=== PATIENT | male | born 1960 | race Caucasian/White ===

== ENCOUNTER → 2017-04-29 | Day surgery (SDC) | payer BC ==
[~2017-04-29] MED LIST: CERTAGEN PO; FLONASE ALLERG9.9 ML; NO MEDICATIONS; [UNRECOGNIZED DRUG - OTHER]
--- NOTE | ~2017-04-29 | OR ---
Unit #: [id number] #: [id number] Patient: PERLA HOLLOWAY [id number] [address] [address] [id number] MR#: [id number] NAME: PERLA HOLLOWAY ROOM: Date of Procedure: 04/29/2017 Admission Date: 04/29/2017 Surgeon: Marc Williamson M.D. : 1960 Attending Physician: Marc Williamson M.D. Referring Physician: Marc Williamson M.D. Primary Care Physician: Paolo Pérez M.D. OPERATIVE REPORT PROCEDURES PERFORMED Colonoscopy with biopsy removal of polyp. INDICATIONS FOR PROCEDURE The patient with history of serrated adenoma in the past, undergoing surveillance colonoscopy. MEDICATIONS Monitored anesthesia. POSTOPERATIVE FINDINGS 1. Small 2 mm polyp, cecum, removed using biopsy forceps. 2. Rest of the colon exam to cecum was normal. 3. Prep was good. 4. Internal hemorrhoids. PLAN If he has history of having large serrated adenoma, recommend repeat colonoscopy in 3 years. DESCRIPTION OF PROCEDURE The patient was explained of the procedure, risks, and benefits along with risks and benefits of anesthesia. He was brought to the endoscopy room. Propofol anesthesia was given. Rectal exam was done, which was normal. Colonoscope was lubricated, passed up the rectum, advanced under direct vision all the way to cecum. Cecum was identified by ileocecal valve and appendiceal orifice. Small polyp seen in cecum was removed using biopsy forceps. Rest of the mucosa was normal. I retroflexed in the rectum, internal hemorrhoids noted. Gently, the scope was pulled out. He tolerated it well. Dictated by... Seb Nash/[place] TD: 04/29/2017 22:25 JOB #: [id number] Unit #: [id number] #: [id number] Patient: PERLA HOLLOWAY OPERATIVE REPORT Page 1 of 1 X Marc Williamson MD PROCEDURE OPERATIVE NOTE
== END | disposition home or self-care (01) ==
LOC: COPS 08:25
PROVIDERS: Internal Medicine
PROC: 0DBH8ZX Excision of Cecum, Via Natural or Artificial Opening Endoscopic, Diagnostic (ICD-10-PCS; principal; 2017-04-29 10:00)
DX: Z12.11 Encounter for screening for malignant neoplasm of colon (principal); Z86.010 Personal history of colon polyps; D12.0 Benign neoplasm of cecum; K64.8 Other hemorrhoids; Z98.890 Other specified postprocedural states
CPT/HCPCS: 88305; J2250